=== PATIENT | male | born 1965 | race Hispanic/Latino ===

== ENCOUNTER 2023-07-19 07:22 | Day surgery (SDC) | payer MEDICARE ==
[2023-07-18 14:46] VITALS: BP 127/82; PULSE 90; RESP 14
[~2023-07-19] VITALS: Ht 170.2 cm; Wt 89.4 kg
[2023-07-19] VITALS (12 sets, daily range): BP systolic 96–141; BP diastolic 63–85; PULSE 77–97; RESP 12–18
[~2023-07-19 07:22] MED LIST: 0.9%NACL 1000ML 1,000 ML IV ONE; ACET-2079 PO; ALBU90AE2 IH; ALLO100T PO; ASPI-1197 PO; ATOR20TA65 PO; BACL20TA PO; DOXE3TAB4 PO; DULO30CA52 PO; DULO60CA64 PO; ESOM40CA54 PO; FAMO40TA7 PO; FENO160T16 PO; FURO40TA5 PO; GABA-529 PO; LEVO50CA4 PO; LISI2.5T13 PO; MEMA10TA55 PO; METF-444 PO; OXYB5TAB16 PO; SEMA1PEN3 SQ; SYMBICORT; TAMS-1 PO; TRAM50TA4 PO
[2023-07-19] MEDS ORDERED: IPRATROPIUM/ALBUTEROL SULFATE 3 ML SOLUTION IH STA (09:52)
[2023-07-19] MEDS ORDERED: IPRATROPIUM/ALBUTEROL SULFATE 3 ML SOLUTION IH ONE (09:55)
[2023-07-19] MEDS ORDERED: PROPOFOL 10 MG/ML 20ML VIAL IV ONE (10:06)
[2023-07-19] MEDS ORDERED: EPHEDRINE SULFATE 50 MG/ML AMPULE ONE (10:23)
== END 2023-07-19 11:40 | disposition home or self-care (01) ==
LOC: ENDO 07:22 → DAH 07:22 → ENDO 11:40
PROVIDERS: ATTEND Internal Medicine Gastroenterology
DX: D50.0 Iron deficiency anemia secondary to blood loss (chronic) (principal); R19.5 Other fecal abnormalities; K29.50 Unspecified chronic gastritis without bleeding; K57.30 Diverticulosis of large intestine without perforation or abscess without bleeding; K21.9 Gastro-esophageal reflux disease without esophagitis; E78.5 Hyperlipidemia, unspecified; I10 Essential (primary) hypertension; F41.9 Anxiety disorder, unspecified; F32.A Depression, unspecified; E11.9 Type 2 diabetes mellitus without complications; M19.90 Unspecified osteoarthritis, unspecified site; Z79.899 Other long term (current) drug therapy; Z86.73 Personal history of transient ischemic attack (TIA), and cerebral infarction without residual deficits; Z90.49 Acquired absence of other specified parts of digestive tract; Z98.890 Other specified postprocedural states
CPT/HCPCS: 82948 ×2; 43239; 45378; 94640; J7030 ×2; J3490; J2704; A4620; A4215 ×2; A4223; A7002; A4222; A4221; A4663; A4216; A4606